=== PATIENT | male | born 1930 | race Caucasian/White ===

== ENCOUNTER 2016-06-09 22:16 | Emergency (ER) | payer OTHER ==
[~2016-06-09] VITALS: Ht 182.9 cm; Wt 79.4 kg
[~2016-06-09 22:16] MED LIST: ATEN-60 PO; CEFU500T43 PO; CLOP75TA41 PO; FUR40T PO; HYDR200T PO; LIS10T PO; LOVA20TA4 PO; NOR10T PO; PANT1INJ3 PO; PRE5T PO; TERA1CAP33 PO
[2016-06-09] MEDS ORDERED: cefTRIAXone 1GM/50ML D5W 50 ML IV ONE (23:30)
[2016-06-10 04:46] VITALS: BP 149/78
[2016-06-10] MEDS ORDERED: LIDOCAINE 1% HCL (LOCAL ANESTH.) INJ 20ML MDV ONE (04:50)
[2016-06-10] MEDS ORDERED: LIDOCAINE 1% HCL (LOCAL ANESTH.) INJ 20ML MDV IJ ONE (05:15)
== END 2016-06-10 06:25 | disposition home or self-care (01) ==
LOC: ER 22:24
DX: S91.112A Laceration without foreign body of left great toe without damage to nail, initial encounter (principal); J44.9 Chronic obstructive pulmonary disease, unspecified; E78.5 Hyperlipidemia, unspecified; I11.0 Hypertensive heart disease with heart failure; I50.9 Heart failure, unspecified; Z86.73 Personal history of transient ischemic attack (TIA), and cerebral infarction without residual deficits; Z79.899 Other long term (current) drug therapy; X58.XXXA Exposure to other specified factors, initial encounter; Y93.89 Activity, other specified; Y99.8 Other external cause status; Y92.89 Other specified places as the place of occurrence of the external cause
CPT/HCPCS: 12001; 73630; 94761; 96365; 99284; J0696; J2001

== ENCOUNTER 2016-06-11 08:25 | Emergency (ER) | payer OTHER ==
[~2016-06-11] VITALS: Ht 185.4 cm; Wt 79.4 kg
[2016-06-11 08:53] VITALS: BP 157/85
== END 2016-06-11 10:31 | disposition home or self-care (01) ==
LOC: EDBD 08:25 → ER 08:30
DX: S91.111D Laceration without foreign body of right great toe without damage to nail, subsequent encounter (principal); I11.0 Hypertensive heart disease with heart failure; I50.9 Heart failure, unspecified; E78.5 Hyperlipidemia, unspecified; Z86.73 Personal history of transient ischemic attack (TIA), and cerebral infarction without residual deficits; Z48.01 Encounter for change or removal of surgical wound dressing